=== PATIENT | female | born 1980 | race Caucasian/White ===

== ENCOUNTER 2025-08-03 21:06 | Emergency (ER) | payer OTHER ==
[~2025-08-03] VITALS: Ht 167.6 cm; Wt 84.0 kg
[2025-08-03 21:12] VITALS: O2SAT 100
[2025-08-03] MEDS: LIDOCAINE HCL 1% 20ML VIAL INFIL ONE (21:45)
[2025-08-03] MEDS: TETANUS, DIPHTHERIA, PERTUSSIS VAC/PF 0.5ML (>10YR OLD) IM ONE (21:45)
[2025-08-03 22:23] LABS: BASOPHILS % 0.4 % (0.0-2.0); EOSINOPHILS % 1.9 % (0.0-5.0); HEMATOCRIT. 39.2 % (36.0-48.0); HEMOGLOBIN. 12.7 g/dL (12.0-16.0); LYMPHOCYTES % 20.7 % (20.0-50.0); MEAN PLATELET VOLUME 8.6 fl (7.4-10.4); MONOCYTES % 5.5 % (2.0-8.0); NEUTROPHILS % 71.5 % (40.0-76.0); PLATELET 237 x1000/uL (130-400); RED BLOOD CELL COUNT 5.21 mill/uL (4.2-5.4); RED CELL DISTRIBUTION WIDTH 17.6 % (11.6-14.6)
[2025-08-03 22:41] LABS: HCG SCREEN NEGATIVE
[2025-08-03 22:42] LABS: CREATININE 0.9 mg/dL (0.6-1.0); UREA NITROGEN BLOOD 11 mg/dL (9-23)
[2025-08-03 22:44] LABS: ASPARTATE AMINOTRANSFERASE 60 IU/L (<34); BILIRUBIN DIRECT < 0.1 mg/dL (<=3.0); BILIRUBIN TOTAL 0.3 mg/dL (0.1-1.0); PROTEIN TOTAL 7.7 g/dL (6.0-8.3)
[2025-08-03] MEDS: SODIUM CHLORIDE 0.9% 500 ML IV ONE (22:57)
[2025-08-03] MEDS: ACETAMINOPHEN 1000MG/100ML 100 ML IV SCH (22:57)
[2025-08-03] MEDS ORDERED: BACITRACIN 14GM TUBE TOP ONE (23:15)
[2025-08-03] MEDS: ONDANSETRON HCL 4MG/2ML INJ IV SCH (23:24)
[2025-08-03] MEDS: MORPHINE SULFATE 4 MG/ML INJ (FOR IV/IM USE) IV SCH (23:24)
[2025-08-03] MEDS: BACITRACIN ZINC OINT UDPKT TOP NR (23:48)
[2025-08-04] MEDS ORDERED: IBUP-1455 MT (01:38)
[2025-08-04] MEDS ORDERED: BACL-141 MT (01:38)
[2025-08-04] MEDS ORDERED: HYDR-4001 MT (01:40)
[2025-08-04] MEDS: HYDROCODONE/ACETAMINOPHEN 5/325MG TABLET PO ONE (02:01)
[2025-08-04 02:39] VITALS: BP 157/91; PULSE 80; RESP 15; TEMP 36.8; O2SAT 99
[2025-08-04] MEDS ORDERED: IOHEXOL-300 100 ML BOTTLE ONE (06:53)
== END 2025-08-04 02:42 | disposition home or self-care (01) ==
LOC: ER 21:06
DX: S62.306A Unspecified fracture of fifth metacarpal bone, right hand, initial encounter for closed fracture (principal); S81.011A Laceration without foreign body, right knee, initial encounter; S80.02XA Contusion of left knee, initial encounter; V49.9XXA Car occupant (driver) (passenger) injured in unspecified traffic accident, initial encounter; Y92.410 Unspecified street and highway as the place of occurrence of the external cause; Y93.89 Activity, other specified; Y99.8 Other external cause status
CPT/HCPCS: 80076; 80048; 80320; 84703; 85025; 36415; 73130; 73560; 70450; 72128; 90715; 12002; 90471; 96365; 96375; 99285; 74177; J2003; J2405; J2270; Q9967; G0480; J0131